=== PATIENT | female | born 1985 | race American Indian/Alaskan Native ===

== ENCOUNTER 2019-05-23 06:19 | Emergency (ER) | payer MEDICAID, MEDICARE ==
[2019-05-23] MEDS ORDERED: ONDANSETRON 4 MG ODT TAB PO ONE (06:32)
[2019-05-23 06:39] VITALS: BP 135/82
[2019-05-23] MEDS ORDERED: predniSONE 20 MG TAB PO ONE (07:32)
[2019-05-23] MEDS ORDERED: ALBUTEROL 2.5 MG/3 ML NEBU IH ONE (07:32)
--- NOTE | 2019-05-23 07:35 | Emergency Department Report ---
Minor Respiratory - HPI Chief Complaint: Headache Stated Complaint: HEADACHE Time Seen by Provider: 05/23/19 07:32 Duration: 3 Days Pain Location: Chest Severity: mild Minor Respiratory: Yes Rhinorrhea, Yes Sore Throat, Yes Able to Tolerate Fluids, Yes Cough, No Ear Pain, No Sick Contacts, No Hemoptysis, No Chest Pain, No Shortness of Breath, No Fever Other History: Patient is a 33-year-old -[place] female who comes to the ER today with a headache, cough, congestion. She has a past medical history of diabetes, asthma and mental health disease. She has taken uyyt-ykd-xfmduid medications but is felt no better. On initial exam she is coughing with rhonchi in bilateral lungs. Given her diabetes and asthma need to rule out consol idation suggestive of pneumonia. ED Review of Systems ROS: Stated complaint: HEADACHE Other details as noted in HPI Comment: All other systems reviewed and negative ED Past Medical Hx - Past Medical History Previous Medical History?: Yes Hx Diabetes: Yes Hx Psychiatric Treatment: Yes (schizophrenia, bipolar) Hx Asthma: Yes - Surgical History Past Surgical History?: Yes Hx Cholecystectomy: Yes Additional Surgical History: R ovary removal, cyst removal 2014. hernia sx 2016 - Family History Family history: no significant - Social History Smoking Status: Current Every Day Smoker Substance Use Type: None - Medications Home Medications: Home Medications Medication Instructions Recorded Confirmed Last Taken Type Albuterol INH(or & Nicu Only) 2 puff IH QID PRN #1 inhalation 05/23/19 Unknown Rx [ProAir HFA Inhaler] Amoxicillin [Trimox CAP] 500 mg PO BID #20 capsule 05/23/19 Unknown Rx Cetirizine HCl [ZyrTEC] 10 mg PO DAILY #30 capsule 05/23/19 Unknown Rx Fluticasone [Flonase] 1 spray NS QDAY #1 bottle 05/23/19 Unknown Rx predniSONE [Deltasone] 20 mg PO DAILY #5 tablet 05/23/19 Unknown Rx Minor Respiratory Exam - Exam General: Vital signs noted. No distress. Alert and acting appropriately. HEENT: Yes Moist Mucous Membranes, Yes Frontal Tenderness, Yes Maxillary Tenderness, No Pharyngeal Erythema, No Pharyngeal Exudates, No Rhinorrhea, No Conjuctival Injection Ear: Neither TM Bulge, Neither TM Erythema, Neither EAC Pain, Neither EAC Discharge Neck: Yes Supple, No Adenopathy Lungs: Yes Good Air Exchange, Yes Wheezes, Yes Cough, No Ronchi, No Stridor, No Labored Respirations, No Retractions, No Use of Accessory Muscles, No Other Abnormal Lung Sounds Heart: Yes Regular, No Murmur Abdomen: Yes Normal Bowel Sounds, No Tenderness, No Peritoneal Signs Skin: No Rash, No Edema Neurologic: Alert and oriented, no deficits. Musculoskeletal: Unremarkable. ED Course Vital Signs 05/23/19 06:24 Temperature 98.0 F Pulse Rate 79 Respiratory 20 Rate Blood Pressure 135/82 O2 Sat by Pulse 98 Oximetry ED Medical Decision Making - Radiology Data Radiology results: report reviewed, image reviewed - Medical Decision Making Patient has no fever or chills. She does have a productive cough. This is in the setting of having asthma and diabetes. X-ray with no consolidation. DuoNeb and prednisone in the emergency room. Patient reported feeling better after medications. Patient being discharged home with discharge plan of care including PCP follow- up in 48 hours to make sure she is getting better. Patient verbalizes understanding of discharge plan of care. Vital Signs 05/23/19 05/23/19 06:24 08:18 Temperature 98.0 F Pulse Rate 79 Pulse Rate [ 77 Anterior Bilateral Throughout] Respiratory 20 Rate Respiratory 18 Rate [Anterior Bilateral Throughout] Blood Pressure 135/82 O2 Sat by Pulse 98 Oximetry - Differential Diagnosis Rule out pneumonia, asthma exacerbation, URI, influenza Critical care attestation.: If time is entered above; I have spent that time in minutes in the direct care of this critically ill patient, excluding procedure time. ED Disposition Clinical Impression: Bronchitis, Sinusitis, Asthma exacerbation Disposition: DC-01 TO HOME OR SELFCARE Is pt being admited?: No Does the pt Need Aspirin: No Condition: Stable Instructions: Acute Bronchitis (ED) Additional Instructions: Medications as ordered today. Stay well-hydrated. Follow-up with primary care. Referral given below. Motrin or Tylenol for pain. Prescriptions: predniSONE [Deltasone] 20 mg PO DAILY #5 tablet Fluticasone [Flonase] 1 spray NS QDAY #1 bottle Albuterol INH(or & Nicu Only) [ProAir HFA Inhaler] 2 puff IH QID PRN #1 inhalation PRN Reason: Shortness Of Breath Amoxicillin [Trimox CAP] 500 mg PO BID #20 capsule Cetirizine HCl [ZyrTEC] 10 mg PO DAILY #30 capsule Referrals: PRIMARY CARE, [Primary Care Provider] - 3-5 Days HERBERT DOWD MD [Staff Physician] - 3-5 Days Time of Disposition: 07:56
--- NOTE | 2019-05-23 07:51 | XRay Report ---
CHEST 2 VIEWS INDICATION: cold cough congestion. COMPARISON: None FINDINGS: Support devices: None. Heart: Within normal limits. Lungs/pleura: Mild left peribronchial thickening with otherwise clear lungs. No pneumothorax. Additional findings: None. IMPRESSION: 1. Mild left peribronchial thickening with otherwise clear lungs. No effusion Signer Name: Jorden Botello MD Signed: 05/23/2019 7:46 AM Workstation Name: [id number]
== END 2019-05-23 08:36 | disposition home or self-care (01) ==
LOC: ED 06:19
DX: J45.901 Unspecified asthma with (acute) exacerbation (principal); J32.9 Chronic sinusitis, unspecified; I10 Essential (primary) hypertension; F25.0 Schizoaffective disorder, bipolar type; E11.9 Type 2 diabetes mellitus without complications; F17.200 Nicotine dependence, unspecified, uncomplicated; Z88.1 Allergy status to other antibiotic agents; Z90.49 Acquired absence of other specified parts of digestive tract; Z98.890 Other specified postprocedural states; Z79.899 Other long term (current) drug therapy
CPT/HCPCS: 71046; 94640; 99284; J7512; 94644; Q0162

== ENCOUNTER 2020-09-08 01:11 | Emergency (ER) | payer MEDICAID ==
[2020-09-08 01:24] VITALS: BP 162/83
[2020-09-08] MEDS ORDERED: ASPIRIN 325 MG TAB PO ONE (02:15)
[2020-09-08 03:09] LABS: Basophils % (Auto) 0.2 % (0.0-1.8); Eosinophils # (Auto) 0.1 K/mm3 (0.0-0.4); Eosinophils % (Auto) 0.8 % (0.0-4.3); Hematocrit 34.9 % (30.3-42.9); Hemoglobin 11.5 gm/dl (10.1-14.3); Lymphocytes # (Auto) 2.4 K/mm3 (1.2-5.4); Lymphocytes % (Auto) 28.2 % (13.4-35.0); Mean Corpuscular HGB Conc 33 % (30-34); Monocytes # (Auto) 0.5 K/mm3 (0.0-0.8); Platelet Count 316 K/mm3 (140-440); Red Cell Distribution Width 16.4 % (13.2-15.2)
[2020-09-08 03:11] LABS: Mean Corpuscular Volume 66 fl (79-97)
[2020-09-08 04:04] LABS: Alanine Aminotransferase 10 units/L (7-56); Albumin 4.3 g/dL (3.9-5); Blood Urea Nitrogen 5 mg/dL (7-17); Calcium 9.1 mg/dL (8.4-10.2); Hemolysis Index 0
[2020-09-08 04:05] LABS: BUN/Creatinine Ratio 7
--- NOTE | 2020-09-08 04:05 | XRay Report ---
CHEST 2 VIEWS, 09/08/2020 2:36 AM INDICATION: Chest pain COMPARISON: Chest radiograph, 05/23/2019 FINDINGS: Support devices: None. Heart: The cardiac silhouette is normal in size. Lungs/pleura: The lungs are clear of focal airspace disease or significant pleural effusion. Additional findings: No significant acute abnormality. IMPRESSION: 1. No evidence of acute cardiopulmonary process. Signer Name: Britta Smith MD Signed: 09/08/2020 4:00 AM Workstation Name: [id number]
--- NOTE | 2020-09-11 18:53 | Electrocardiograph Report ---
[facility] Test Date: 2020-09-08 Test Time: 02:17:44 Pat Name: HARMAN ALANIZ Department: Room: Gender: F [employer] Handler: CITLALLI : 1985 Requested By: RAMILA BEJARANO Order Number: [id number] Reading MD: Coy Valverde Measurements Intervals Badger Rate: 99 P: 60 DC: 166 QRS: 54 QRSD: 79 T: 49 QT: 343 QTc: 441 Interpretive Statements Sinus rhythm No previous ECG available for comparison Electronically Signed On 09-11-2020 18:52:54 EDT by Coy Valverde
== END 2020-09-08 05:00 | disposition left against medical advice (07) ==
LOC: ED 01:11
DX: F41.0 Panic disorder [episodic paroxysmal anxiety] (principal); Z53.21 Procedure and treatment not carried out due to patient leaving prior to being seen by health care provider
CPT/HCPCS: 36415; 71046; 80053; 84484; 85025; 93005

== ENCOUNTER 2021-03-19 18:04 | Emergency (ER) | payer MEDICAID ==
[2021-03-19] MEDS ORDERED: ONDANSETRON 4 MG/2 ML INJ IV ONE (21:15)
[2021-03-19] MEDS ORDERED: FAMOTIDINE 20 MG/2 ML INJ IV ONE (21:15)
[2021-03-19] MEDS ORDERED: SODIUM CHLORIDE 0.9% 1000 ML 1,000 ML IV ONE (21:15)
[2021-03-19] MEDS ORDERED: MORPHINE 4 MG/1 ML INJ IV ONE (21:15)
[2021-03-19 21:40] LABS: Basophils % (Auto) 0.7 % (0.0-1.8); Hematocrit 35.9 % (30.3-42.9); Hemoglobin 11.6 gm/dl (10.1-14.3); Lymphocytes # (Auto) 0.4 K/mm3 (1.2-5.4); Lymphocytes % (Auto) 7.8 % (13.4-35.0); Mean Corpuscular HGB Conc 32 % (30-34); Monocytes # (Auto) 0.6 K/mm3 (0.0-0.8); Platelet Count 229 K/mm3 (140-440); Red Blood Count 5.31 M/mm3 (3.65-5.03); Red Cell Distribution Width 15.2 % (13.2-15.2)
[2021-03-19 21:47] LABS: Mean Corpuscular Volume 68 fl (79-97)
[2021-03-19 21:54] LABS: Alanine Aminotransferase 10 units/L (7-56); Albumin 4.5 g/dL (3.9-5); BUN/Creatinine Ratio 8; Blood Urea Nitrogen 6 mg/dL (7-17); Calcium 9.3 mg/dL (8.4-10.2); Hemolysis Index 20
--- NOTE | 2021-03-20 00:31 | Cat Scan Report ---
CT ABDOMEN AND PELVIS WITH CONTRAST INDICATION / CLINICAL INFORMATION: LLQ abdominal pain. TECHNIQUE: Axial CT images were obtained through the abdomen and pelvis after 100 cc of Omnipaque [address] scans at this location are performed using CT dose reduction for ALARA by means of automated exposure control. COMPARISON: None available. FINDINGS: LOWER CHEST: No significant abnormality. AORTA / ARTERIES: No significant abnormality. IVC / VEINS: No significant abnormality. LYMPH NODES: No significant adenopathy. COLON: No significant abnormality. APPENDIX: No significant abnormality. STOMACH / SMALL BOWEL: No significant abnormality. PERITONEUM: Trace free fluid within the pelvis. No free air. No fluid collection. LIVER: No significant abnormality. GALLBLADDER: Cholecystectomy. BILE DUCTS: No significant abnormality. PANCREAS: No significant abnormality. SPLEEN: No significant abnormality. ADRENALS: There is a 2.9 cm left adrenal lesion. Right adrenal gland is unremarkable. RIGHT KIDNEY / URETER: No significant abnormality. LEFT KIDNEY / URETER: No significant abnormality. URINARY BLADDER: No significant abnormality. REPRODUCTIVE ORGANS: No significant abnormality. SKELETAL SYSTEM: No significant abnormality. ADDITIONAL FINDINGS: None. IMPRESSION: 1. Trace free fluid within the pelvis, likely physiologic. 2. Incidentally noted 2.9 cm left adrenal lesion. Further workup with a CT of the adrenal glands is r ecommended. Signer Name: Dante Molina DO Signed: 03/20/2021 12:26 AM Workstation Name: [id number]
--- NOTE | 2021-03-20 00:43 | Emergency Department Report ---
ED Abdominal Pain HPI - General Chief Complaint: Pain General Stated Complaint: generalized pain Source: patient, EMS Mode of arrival: Stretcher Limitations: No Limitations - History of Present Illness Initial Comments: Patient is a 35-year-old -German female with a history of bipolar disorder, schizophrenia, asthma, sqp-vzamhcx-gnigzmnfd diabetes and manic depression who presented to the ED with complaint of acute onset persistent diffuse low abdominal pain, nausea and vomiting and low back pain that radiates to the lower extremities bilaterally for the last 2 days. Patient states that she has not been able to eat or sleep because of worsening pain. Patient denies dizziness, syncope, chest pain, shortness of breath, dysuria, urinary frequency and urgency or diarrhea, traumatic injury or heavy lifting and fall. MD Complaint: abdominal pain, other (LOWER BACK PAIN) -: Sudden, days(s) (2) Location: LLQ, suprapubic Radiation: suprapubic, back (LOWER) Migration to: no migration Severity scale (0 -10): 8 Quality: aching, sharp Consistency: constant Improves With: nothing Worsens With: nothing Associated Symptoms: denies other symptoms, nausea, vomiting. denies: diarrhea, fever, constipation, dysuria, hematemesis, hematochezia, anorexia, other - Related Data Previous Rx's Medication Instructions Recorded Last Taken Type Albuterol Mdi (or & Nicu Only) 2 puff IH QID PRN #1 inhalation 05/23/19 Unknown Rx [ProAir HFA Inhaler] Amoxicillin [Trimox CAP] 500 mg PO BID #20 capsule 05/23/19 Unknown Rx Cetirizine HCl [ZyrTEC] 10 mg PO DAILY #30 capsule 05/23/19 Unknown Rx Fluticasone [Flonase] 1 spray NS QDAY #1 bottle 05/23/19 Unknown Rx predniSONE [Deltasone] 20 mg PO DAILY #5 tablet 05/23/19 Unknown Rx Baclofen 20 mg PO Q12H PRN #24 tablet 03/20/21 Unknown Rx Ibuprofen [Motrin] 800 mg PO Q8HR PRN #30 tablet 03/20/21 Unknown Rx Ondansetron [Zofran Odt] 4 mg PO Q6HR PRN #20 tab.rapdis 03/20/21 Unknown Rx Sulfamethoxazole/Trimethoprim 1 each PO Q12H #20 tablet 03/20/21 Unknown Rx [Bactrim DS TAB] Allergies Allergy/AdvReac Type Severity Reaction Status Date / Time ciprofloxacin [From Cipro] Allergy Rash Verified 05/23/19 06:24 ED Review of Systems ROS: Stated complaint: generalized pain Other details as noted in HPI Constitutional: fever, malaise. denies: chills Eyes: denies: eye pain, eye discharge, vision change ENT: denies: ear pain, throat pain Respiratory: denies: cough, shortness of breath, wheezing Cardiovascular: denies: chest pain, palpitations Endocrine: no symptoms reported Gastrointestinal: abdominal pain (Diffuse low abdominal pain), nausea, vomiting. denies: diarrhea Genitourinary: denies: urgency, dysuria, discharge Musculoskeletal: back pain, arthralgia, myalgia. denies: joint swelling Skin: denies: rash, lesions Neurological: denies: headache, weakness, paresthesias Psychiatric: denies: anxiety, depression Hematological/Lymphatic: denies: easy bleeding, easy bruising ED Past Medical Hx - Past Medical History Previous Medical History?: Yes Hx Diabetes: Yes Hx Psychiatric Treatment: Yes (schizophrenia, bipolar, manic depression) Hx Asthma: Yes - Surgical History Hx Cholecystectomy: Yes Additional Surgical History: R ovary removal, cyst removal 2014. hernia sx 2015 - Social History Smoking Status: Current Every Day Smoker - Medications Home Medications: Home Medications Medication Instructions Recorded Confirmed Last Taken Type Albuterol Mdi (or & Nicu Only) 2 puff IH QID PRN #1 inhalation 05/23/19 Unknown Rx [ProAir HFA Inhaler] Amoxicillin [Trimox CAP] 500 mg PO BID #20 capsule 05/23/19 Unknown Rx Cetirizine HCl [ZyrTEC] 10 mg PO DAILY #30 capsule 05/23/19 Unknown Rx Fluticasone [Flonase] 1 spray NS QDAY #1 bottle 05/23/19 Unknown Rx predniSONE [Deltasone] 20 mg PO DAILY #5 tablet 05/23/19 Unknown Rx Baclofen 20 mg PO Q12H PRN #24 tablet 03/20/21 Unknown Rx Ibuprofen [Motrin] 800 mg PO Q8HR PRN #30 tablet 03/20/21 Unknown Rx Ondansetron [Zofran Odt] 4 mg PO Q6HR PRN #20 tab.rapdis 03/20/21 Unknown Rx Sulfamethoxazole/Trimethoprim 1 each PO Q12H #20 tablet 03/20/21 Unknown Rx [Bactrim DS TAB] ED Physical Exam - General Limitations: No Limitations General appearance: alert, in no apparent distress - Head Head exam: Present: atraumatic, normocephalic, normal inspection - Eye Eye exam: Present: normal appearance, PERRL, EOMI Pupils: Present: normal accommodation - ENT ENT exam: Present: normal exam, normal orophraynx, mucous membranes moist, TM's normal bilaterally, normal external ear exam - Neck Neck exam: Present: normal inspection, full ROM - Respiratory Respiratory exam: Present: normal lung sounds bilaterally. Absent: respiratory distress, wheezes, rales, rhonchi, chest wall tenderness, accessory muscle use, decreased breath sounds - Cardiovascular Cardiovascular Exam: Present: normal rhythm, tachycardia, normal heart sounds. Absent: systolic murmur, diastolic murmur, rubs, gallop - GI/Abdominal GI/Abdominal exam: Present: soft, tenderness (Palpable diffuse lower abdominal tenderness), normal bowel sounds. Absent: guarding, rebound, hyperactive bowel sounds, hypoactive bowel sounds, organomegaly, mass - Extremities Exam Extremities exam: Present: normal inspection, full ROM, normal capillary refill - Back Exam Back exam: Present: normal inspection, full ROM, tenderness (Palpable lumbosacral paraspinal musculoskeletal tenderness), muscle spasm, paraspinal tenderness. Absent: vertebral tenderness - Neurological Exam Neurological exam: Present: alert, oriented X3, CN II-XII intact, normal gait, reflexes normal - Psychiatric Psychiatric exam: Present: normal affect, normal mood - Skin Skin exam: Present: warm, dry, intact, normal color. Absent: rash ED Course Vital Signs 03/19/21 03/20/21 18:05 06:25 Temperature 101.3 F H 97.9 F Pulse Rate 113 H 72 Respiratory 18 16 Rate Blood Pressure 124/68 109/71 [Left] O2 Sat by Pulse 98 Oximetry ED Medical Decision Making - Lab Data Result diagrams: 03/19/21 21:22 03/19/21 21:22 - Radiology Data Radiology results: report reviewed, image reviewed [facility] [address] [place] [address] Cat Scan Report Signed Patient: HARMAN ALANIZ MR#: [id number] : 1985 Acct:[id number] Age/Sex: 35 / F ADM Date: 03/19/21 Loc: ED Attending Dr: Ordering Physician: REBECA SCHWARTZ Date of Service: 03/19/21 Procedure(s): CT abdomen pelvis w con Accession Number(s): [id number] cc: REBECA SCHWARTZ CT ABDOMEN AND PELVIS WITH CONTRAST INDICATION / CLINICAL INFORMATION: LLQ abdominal pain. TECHNIQUE: Axial CT images were obtained through the abdomen and pelvis after 100 cc of Omnipaque [address] scans at this location are performed using CT dose reduction for ALARA by means of automated exposure control. COMPARISON: None available. FINDINGS: LOWER CHEST: No significant abnormality. AORTA / ARTERIES: No significant abnormality. IVC / VEINS: No significant abnormality. LYMPH NODES: No significant adenopathy. COLON: No significant abnormality. APPENDIX: No significant abnormality. STOMACH / SMALL BOWEL: No significant abnormality. PERITONEUM: Trace free fluid within the pelvis. No free air. No fluid collecti on. LIVER: No significant abnormality. GALLBLADDER: Cholecystectomy. BILE DUCTS: No significant abnormality. PANCREAS: No significant abnormality. SPLEEN: No significant abnormality. ADRENALS: There is a 2.9 cm left adrenal lesion. Right adrenal gland is unremarkable. RIGHT KIDNEY / URETER: No significant abnormality. LEFT KIDNEY / URETER: No significant abnormality. URINARY BLADDER: No significant abnormality. REPRODUCTIVE ORGANS: No significant abnormality. SKELETAL SYSTEM: No significant abnormality. ADDITIONAL FINDINGS: None. IMPRESSION: 1. Trace free fluid within the pelvis, likely physiologic. 2. Incidentally noted 2.9 cm left adrenal lesion. Further workup with a CT of the adrenal glands is recommended. Signer Name: Dante Molina DO Signed: 03/20/2021 12:26 AM Workstation Name: [id number] Transcribed By: MISHA Dictated By: DANTE MOLINA DO Electronically Authenticated By: DANTE MOLINA DO Signed Date/Time: 03/20/2125 DD/ TD/TT: [facility] [address] [place] [address] XRay Report Signed Patient: HARMAN ALANIZ MR#: [id number] : 1985 Acct:[id number] Age/Sex: 35 / F ADM Date: 03/19/21 Loc: ED Attending Dr: Ordering Physician: REBECA SCHWARTZ Date of Service: 03/20/21 Procedure(s): XR chest 1V ap Accession Number(s): [id number] cc: REBECA SCHWARTZ Fluoro Time In Minutes: CHEST 1 VIEW 03/20/2021 12:19 AM INDICATION / CLINICAL INFORMATION: FEVER AND BODY ACHES. COMPARISON: 10/08/2020 FINDINGS: SUPPORT DEVICES: None. HEART / MEDIASTINUM: No significant abnormality. LUNGS / PLEURA: No significant pulmonary or pleural abnormality. No pneumothorax. ADDITIONAL FINDINGS: No significant additional findings. IMPRESSION: 1. No acute findings. Signer Name: Dante Molina DO Signed: 03/20/2021 1:23 AM Workstation Name: [id number] Transcribed By: MISHA Dictated By: DANTE MOLINA DO Electronically Authenticated By: DANTE MOLINA DO Signed Date/Time: 03/20/21122 DD/ 2 TD/TT: - Medical Decision Making This is a 35-year-old -German female with a history of bipolar disorder, schizophrenia, asthma, uiq-kulxyqc-lntnsddgq diabetes and manic depression who presented to the ED with complaint of acute onset persistent diffuse low abdominal pain, nausea and vomiting and low back pain that radiates to the lower extremities bilaterally for the last 2 days. Patient states that she has not been able to eat or sleep because of worsening pain. In the ED, patient is alert and oriented x3 and is not in any distress. Patient however is febrile and tachycardic, and appears to be in significant pain. Patient was treated for pain and fever, also given antiemetics, normal saline 1 L IV bolus x1 and antacids. Chest x-ray showed no acute cardiopulmonary abnormalities or pneumonitis. Lab test results were reviewed and are all nonactionable except for urinary tract infection in urinalysis. Abdomen pelvis CT scan with contrast showed no acute abnormalities except for an incidental finding of trace free fluid within the pelvis, likely physiologic. Incidentally noted 2.9 cm left adrenal lesion. Further workup with a CT of the adrenal glands is recommended. Patient also received Rocephin 1 g IV x1. On reevaluation, patient fever resolved medication. Patient tachycardia also resolved in the ED. Patient was therefore discharged home on medications and advised to follow-up with her primary care physician in 7 to 10 days for reevaluation or return to the ED immediately if symptoms get worse. - Differential Diagnosis Pneumonia; URI; COVID-19; influenza; UTI; kidney stones; colitis Critical care attestation.: If time is entered above; I have spent that time in minutes in the direct care of this critically ill patient, excluding procedure time. ED Disposition Clinical Impression: Fever and chills, Nausea and vomiting in adult patient, Acute urinary tract infection Low back pain Qualifiers: Chronicity: acute Back pain laterality: unspecified Sciatica presence: without sciatica Qualified Code(s): M54.50 - Low back pain, unspecified Abdominal pain Qualifiers: Abdominal location: lower abdomen, unspecified Qualified Code(s): R10.30 - Lower abdominal pain, unspecified Disposition: 01 HOME / SELF CARE / HOMELESS Is pt being admited?: No Does the pt Need Aspirin: No Condition: Stable Instructions: Nausea and Vomiting, Adult, Hhwp-dv-Msdq, Urinary Tract Infection, Adult, Ishj-xp-Bkpb, Abdominal Pain, Adult, Fwal-cm-Ekad, Fever, Adult, Sgcw-xs-Mfnh Additional Instructions: All lab test results were reviewed and are all nonactionable except for urinary tract infection in urinalysis. Chest x-ray showed no acute cardiopulmonary abnormalities or pneumonitis. Abdomen pelvis CT scan with contrast showed no acute abnormalities. Therefore take medications with food, drink plenty of fluids and follow-up with your primary care physician in 7 to 10 days for reevaluation. Return to the ED immediately if symptoms get worse. Prescriptions: Baclofen 20 mg PO Q12H PRN #24 tablet PRN Reason: Muscle Spasm Sulfamethoxazole/Trimethoprim [Bactrim DS TAB] 1 each PO Q12H #20 tablet Ibuprofen [Motrin] 800 mg PO Q8HR PRN #30 tablet PRN Reason: Pain and fever Ondansetron [Zofran Odt] 4 mg PO Q6HR PRN #20 tab.rapdis PRN Reason: Nausea And Vomiting Referrals: PRIMARY CARE, [Primary Care Provider] - 3-5 Days Time of Disposition: 05:41 Print Language: RUSSIAN
--- NOTE | 2021-03-20 01:27 | XRay Report ---
CHEST 1 VIEW 03/20/2021 12:19 AM INDICATION / CLINICAL INFORMATION: FEVER AND BODY ACHES. COMPARISON: 10/08/2020 FINDINGS: SUPPORT DEVICES: None. HEART / MEDIASTINUM: No significant abnormality. LUNGS / PLEURA: No significant pulmonary or pleural abnormality. No pneumothorax. ADDITIONAL FINDINGS: No significant additional findings. IMPRESSION: 1. No acute findings. Signer Name: Dante Molina DO Signed: 03/20/2021 1:23 AM Workstation Name: [id number]
[2021-03-20] MEDS ORDERED: ACETAMINOPHEN 500 MG TAB PO ONE (02:58)
[2021-03-20 04:00] LABS: Bacteria,Urine 1+ /HPF (Negative); Bilirubin,Urine NEG (Negative); Blood,Urine MOD (Negative); Color,Urine Yellow (Yellow); Mucus,Urine FEW /HPF; Protein,Urine <15 mg/dL mg/dL (Negative)
[2021-03-20] MEDS ORDERED: cefTRIAXone/NS 1 GM/50 ML 1 GM/50 ML BAG IV ONE (04:39)
[2021-03-20 06:27] VITALS: BP 109/71
== END 2021-03-20 05:00 | disposition home or self-care (01) ==
LOC: ED 18:04
DX: R50.9 Fever, unspecified (principal); R11.2 Nausea with vomiting, unspecified; N39.0 Urinary tract infection, site not specified; M54.50 Low back pain, unspecified; R10.30 Lower abdominal pain, unspecified; F17.200 Nicotine dependence, unspecified, uncomplicated; Z90.49 Acquired absence of other specified parts of digestive tract; Z88.1 Allergy status to other antibiotic agents; E11.9 Type 2 diabetes mellitus without complications; J45.909 Unspecified asthma, uncomplicated; F20.9 Schizophrenia, unspecified
CPT/HCPCS: 36415; 71045; 74177; 80053; 81001; 83690; 84703; 85025; 87400; 96361; 96374; 96375; 99285; J2270; J2405; J3490; J7030; Q9967; Q0162